=== PATIENT | male | born 1955 | race Caucasian/White ===

== ENCOUNTER 2022-01-03 23:13 | Emergency (ER) | payer BC, SELFPAY ==
--- NOTE | ~2022-01-03 | XR_ITS ---
EXAM: XR finger 4th LT min 2V DATE: 01/04/2022 00:28 HISTORY: post-reduction . COMPARISON: 01/03/2022. FINDINGS: Normal mineralization. The bones of the fourth digit are now anatomically aligned. Small l inear ossific fragment along the medial and distal aspect of the fourth proximal phalange may represe nt a small chip fracture, seen in the frontal and oblique views. No lytic or blastic lesion. Joint sp aces are maintained. No erosion or periosteal change. Soft tissues within normal limits. IMPRESSION: Successful interval fourth PIP reduction. Possible tiny chip fracture along the medial an d distal aspect of the fourth proximal phalange. Reviewed, dictated and finalized at location [facility]. F OF SURGERY IMPRESSION: Successful interval fourth PIP reduction. Possible tiny chip fractu re along the medial and distal aspect of the fourth proximal phalange.
--- NOTE | ~2022-01-03 | XR_ITS ---
XR hand LT min 3V DATE: 01/03/2022 23:55 INDICATION: Dislocation TECHNIQUE: 4 portable views COMPARISON: None FINDINGS: There is complete medial dislocation of the proximal interphalangeal joint of the fourth di git. No apparent fracture is noted. No other fracture or dislocation. Osteoarthritis at first carpometacarpal joint. IMPRESSION: Complete medial dislocation at the fourth digit proximal interphalangeal joint Reviewed, dictated and finalized at location A. [employer] IMPRESSION: Complete medial dislocation at the fourth digit proximal interphala ngeal joint
[2022-01-03 23:25] VITALS: BP 126/80; PULSE 82; RESP 16; TEMP 36.7; O2SAT 96
--- NOTE | 2022-01-03 23:44 | PC.NURSE ---
Patient does state that he took a zolpidem and a norco lpta. ERP notified.
--- NOTE | 2022-01-04 00:30 | ED.UPPEXIN ---
HPI - Extremity Injury (Upper) General Chief Complaint: Extremity Injury, Upper <Venecia Cary PA-C - Last Filed: 01/04/22 00:52> Stated Complaint: left hand injury <Venecia Cary PA-C - Last Filed: 01/04/22 00:52> Time Seen by Provider: 01/03/22 23:37 <Venecia Cary PA-C - Last Filed: 01/04/22 00:52> Source: patient <KORTNEY Mora Last Filed: 01/04/22 00:52> Mode of arrival: ambulatory <Venecia Cary PA-C - Last Filed: 01/04/22 00:52> Limitations: no limitations <Venecia Cary PA-C - Last Filed: 01/04/22 00:52> History of Present Illness HPI narrative: This is a 66-year-old male that presents to the emergency department for an injury to the left fourth finger sustained just prior to arrival. Reports he slipped in the bathtub and fell. He caught himself with his left hand. He did not hit his head or lose consciousness. Reports deformity at the left fourth finger. Reports decreased ROM and pain. Denies numbness. <Venecia Cary PA-C - Last Filed: 01/04/22 00:52> Related Data Allergies/Adverse Reactions: Allergies Allergy/AdvReac Type Severity Reaction Status Date / Time No Known Allergies Allergy Verified 01/03/22 23:40 <Venecia Cary PA-C - Last Filed: 01/04/22 00:52> Review of Systems Review of Systems: CONSTITUTIONAL: Denies fever MUSCULOSKELETAL: Reports joint pain, and myalgia. NEUROLOGIC: Denies numbness <Venecia Cary PA-C - Last Filed: 01/04/22 00:52> All systems reviewed & are unremarkable except as noted in HPI and below <Venecia Cary PA-C - Last Filed: 01/04/22 00:52> [facility] Surgical History Surgical History: Surgical History (Updated 01/04/22 @ 00:36 by Venecia Cary PA-C) History of inguinal hernia repair <Venecia Cary PA-C - Last Filed: 01/04/22 00:52> Social History Social History: Social History (Updated 01/04/22 @ 00:36 by Venecia Cary PA-C) Smoking status: Former smoker <Venecia Cary PA-C - Last Filed: 01/04/22 00:52> Exam Narrative: GENERAL: Well-appearing, well-nourished, and in no acute distress. HEAD: Normocephalic, atraumatic. EYES: EOMI. CHEST: No respiratory distress. HEART: Regular rate EXTREMITIES: Normal range of motion, except decreased active ROM in the left fourth finger with obvious deformity SKIN: Warm, dry, no rash. NEURO: No focal deficits. Alert and oriented x3. 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 I have had [id number] time with the patient. Physical exam revealed an obvious dislocation of the patient's finger. A digital block was performed and the joint was reduced. Patient was placed in a splint and discharged primary care follow-up. The galeas components of all procedures were performed under my supervision. <Daniel Montano MD - Last Filed: 01/04/22 07:20> Vital Signs Vital signs: Vital Signs Temperature 98.0 F 01/03/22 23:25 Pulse Rate 82 01/03/22 23:25 Respiratory Rate 16 01/03/22 23:25 Blood Pressure 126/80 01/03/22 23:25 Pulse Oximetry 96 01/03/22 23:25 Oxygen Delivery Room Air 01/03/22 23:25 Temperature 98.0 F 01/03/22 23:25 Pulse Rate 82 01/03/22 23:25 Respiratory Rate 16 01/03/22 23:25 Blood Pressure 126/80 01/03/22 23:25 Pulse Oximetry 96 01/03/22 23:25 Oxygen Delivery Room Air 01/03/22 23:25 <Venecia Cary PA-C - Last Filed: 01/04/22 00:52> Vital Signs Temperature 98.0 F 01/03/22 23:25 Pulse Rate 82 01/03/22 23:25 Respiratory Rate 16 01/03/22 23:25 Blood Pressure 126/80 01/03/22 23:25 Pulse Oximetry 96 01/03/22 23:25 Oxygen Delivery Room Air 01/03/22 23:25 Temperature 98.0 F 01/03/22 23:25 Pulse Rate 82 01/03/22 23:25 Resp
== END 2022-01-04 00:50 | disposition home or self-care (01) ==
PROVIDERS: Emergency Provider Emergency Medicine
DX: S83.195A Other dislocation of left knee, initial encounter (principal); Z87.891 Personal history of nicotine dependence; W18.2XXA Fall in (into) shower or empty bathtub, initial encounter
CPT/HCPCS: 26770; 73130; 73140; 99285